=== PATIENT | female | born 1980 | race American Indian/Alaskan Native ===

== ENCOUNTER 2019-03-07 23:09 | Emergency (ER) | payer SELFPAY ==
[2019-03-07 23:55] VITALS: BMI 35.5
[2019-03-08] VITALS: BP 136/75; PULSE 105; RESP 18; TEMP 98.3; O2SAT 100
--- NOTE | 2019-03-08 00:16 | ED PDOC ---
Arrival/HPI - General Historian: Patient - History of Present Illness Narrative History of Present Illness (Text): 03/08/19 00:17 Pt is a 38 yo female with a PMH of iron deficiency anemia who presents to the ED complaining of fatigue for the past year which has worsened over the past 2 weeks. Pt states she has been urinating more than usual, feeling tired and lethargic. Pt denies weakness, visual changes, personal or family history of Diabetes. Time/Duration: > week Severity Level: 8 Activities at Onset: Rest Context: Sitting <Jatinder Mares - Last Filed: 03/08/19 01:35> <Martell Robles - Last Filed: 03/08/19 02:29> - General Chief Complaint: Flu-like Symptoms Past Medical History - Hematological/Oncological Hx Anemia: Yes - Psychiatric Hx Psychophysiologic Disorder: No Hx Substance Use: No - Anesthesia Hx Anesthesia: No Hx Anesthesia Reactions: No Hx Malignant Hyperthermia: No <Jatinder Maresron - Last Filed: 03/08/19 01:35> Family/Social History Family/Social History: No Known Family HX Smoking Status: Never Smoked Hx Alcohol Use: No Hx Substance Use: No <Jatinder Maresron - Last Filed: 03/08/19 01:35> Allergies/Home Meds <Jatinder Maresron - Last Filed: 03/08/19 01:35> <Martell Robles - Last Filed: 03/08/19 02:29> Allergies/Adverse Reactions: Allergies No Known Allergies Allergy (Verified 03/07/19 23:55) Home Medications: Home Meds Medication Instructions Recorded Confirmed No Known Home Med 03/07/19 03/07/19 Review of Systems - Review of Systems Constitutional: Fatigue Eyes: Normal ENT: Normal Respiratory: Normal Cardiovascular: Normal Gastrointestinal: Normal Genitourinary Female: Frequency, Urine Output Changes Musculoskeletal: Normal Skin: Normal Neurological: Dizziness Endocrine: Normal Hemo/Lymphatic: Normal Psychiatric: Normal <Jatinder Maresron - Last Filed: 03/08/19 01:35> Physical Exam Vital Signs Reviewed: Yes Vital Signs Temp Pulse Resp BP Pulse Ox 03/07/19 23:59 98.3 F 105 H 18 136/75 100 Temperature: Afebrile Blood Pressure: Normal Pulse: Regular Respiratory Rate: Normal Appearance: Positive for: Well-Appearing Mental Status: Positive for: Alert and Oriented X 3 - Systems Exam Head: Present: Atraumatic, Normocephalic Pupils: Present: PERRL Extroacular Muscles: Present: EOMI Conjunctiva: Present: Normal Mouth: Present: Moist Mucous Membranes Neck: Present: Normal Range of Motion Respiratory/Chest: Present: Clear to Auscultation, Good Air Exchange. No: Respiratory Distress, Accessory Muscle Use Cardiovascular: Present: Regular Rate and Rhythm, Normal S1, S2 Abdomen: Present: Tenderness, Distention. No: Normal Bowel Sounds Upper Extremity: Present: Normal Inspection Lower Extremity: Present: Normal Inspection Neurological: Present: GCS=15, CN II-XII Intact Skin: Present: Warm, Dry, Normal Color Psychiatric: Present: Alert, Oriented x 3 <Jatinder Mares - Last Filed: 03/08/19 01:35> Vital Signs Temp Pulse Resp BP Pulse Ox 03/07/19 23:59 98.3 F 105 H 18 136/75 100 <Martlel Robles - Last Filed: 03/08/19 02:29> Medical Decision Making ED Course and Treatment: 03/08/19 00:24 CBC CMP UA 03/08/19 01:29 CBC shows microcytic anemia likely leading to pt fatigue have pt continue to take her iron supplementation and follow up with her PMD as an outpt Pt seen, examined, assessment and plan discussed with Dr Margaret Mares PGY1 <Jatinder Mares - Last Filed: 03/08/19 01:35> ED Course and Treatment: Impression: Pt seen and evaluated with medical claims assistant. Aware and agree with HPI, clinical findings, plan, and management. Pt, whose past medical history includes anemia, presented for fatigue. Plan: -- Labs -- Urinalysis, urine cultures -- Reassess and disposition - Lab Interpretations Lab Results: Total Bilirubin 0.2 mg/dL (0.2-1.3) 03/08/19 00:49 AST 49 U/L (14-36) H 03/08/19 00:49 ALT 52 U/L (7-56) 03/08/19 00:49 Alkaline Phosphatase 80 U/L (38-126) 03/08/19 00:49 Total Protein 8.4 g/dL (5.8-8.3) H 03/08/19 00:49 Albumin 4.2 g/dL (3.0-4.8) 03/08/19 00:49 Globulin 4.2 gm/dL 03/08/19 00:49 Albumin/Globulin Ratio 1.0 (1.1-1.8) L 03/08/19 00:49 Urine Color Yellow (YELLOW) 03/08/19 00:49 Urine Appearance Clear (CLEAR) 03/08/19 00:49 Urine pH 6.0 (4.7-8.0) 03/08/19 00:49 Ur Specific [place] 1.020 (1.005-1.035) 03/08/19 00:49 Urine Protein Negative mg/dL (<30 mg/dL) 03/08/19 00:49 Urine Glucose (UA) Negative mg/dL (NEGATIVE) 03/08/19 00:49 Urine Ketones Trace mg/dL (NEGATIVE) H 03/08/19 00:49 Urine Blood Negative (NEGATIVE) 03/08/19 00:49 Urine Nitrate Negative (NEGATIVE) 03/08/19 00:49 Urine Bilirubin Negative (NEGATIVE) 03/08/19 00:49 Urine Urobilinogen 0.2 E.U./dL (<1 E.U./dL) 03/08/19 00:49 Ur Leukocyte Esterase Trace Adán/uL (NEGATIVE) H 03/08/19 00:49 Urine RBC 0 - 2 /hpf (0-2) 03/08/19 00:49 Urine WBC 1 - 3 /hpf (0-6) 03/08/19 00:49 Ur Epithelial Cells 1 - 3 /hpf (0-5) 03/08/19 00:49 Urine Bacteria Small /hpf (NONE) 03/08/19 00:49 <Martell Robles - Last Filed: 03/08/19 02:29> Disposition/Present on Arrival - Present on Arrival Any Indicators Present on Arrival: No History of DVT/PE: No History of Uncontrolled Diabetes: No Urinary Catheter: No History of Decub. Ulcer: No History Surgical Site Infection Following: None - Disposition Have Diagnosis and Disposition been Completed?: Yes Disposition Time: 01:35 Patient Plan: Discharge <Jatinder Mares - Last Filed: 03/08/19 01:35> <Martell Robles - Last Filed: 03/08/19 02:29> - Disposition Diagnosis: Anemia Disposition: HOME/ ROUTINE Condition: GOOD Discharge Instructions (ExitCare): Anemia Caused by [place] Referrals: Pankaj Bhat MD [Primary Care Provider] - Follow up with primary Forms: [employer] ([place])
[2019-03-08 01:03] LABS: BASO # 0.02 K/mm3 (0.0-2.0); BASO % 0.3 % (0.0-3.0); EOS # 0.1 (0.0-0.7); EOS % 1.9 % (1.5-5.0); HEMOGLOBIN 10.8 g/dL (12.0-16.0); LYMPH # 2.3 (1.2-3.4); LYMPH % 35.6 % (22.0-35.0); MEAN CORPUSCULAR HEMOGLOBIN 24.3 pg (25.0-35.0); MEAN CORPUSCULAR HGB CONC 31.6 g/dl (31.0-37.0); MEAN PLATELET VOLUME 10.5 fl (7.0-11.0); MONO # 0.4 (0.1-0.6); MONO % 5.6 % (1.0-6.0); RBC 4.44 10^6/uL (3.5-6.1); URINE BILIRUBIN NEGATIVE (NEGATIVE); URINE BLOOD NEGATIVE (NEGATIVE); URINE GLUCOSE (UA) NEGATIVE (NEGATIVE); URINE LEUKOCYTE ESTERASE TRACE Leu/uL (NEGATIVE); URINE PROTEIN NEGATIVE mg/dL (<30 mg/dL); URINE UROBILINOGEN 0.2 E.U./dL (<1 E.U./dL); WHITE BLOOD COUNT 6.4 10^3/uL (4.5-11.0)
[2019-03-08 01:04] LABS: URINE APPEARANCE CLEAR (CLEAR); URINE COLOR YELLOW (YELLOW)
[2019-03-08 01:17] LABS: URINE BACTERIA SMALL /hpf; URINE RBC 0 - 2 /hpf (0-2)
[2019-03-08 01:21] LABS: ALBUMIN 4.2 g/dL (3.0-4.8); ALT/SGPT 52 U/L (7-56); AST/SGOT 49 U/L (14-36); BLOOD UREA NITROGEN 13 mg/dL (7-21); CALCIUM 9.5 mg/dL (8.4-10.5); GFR NON-AFRICAN AMERICAN > 60
== END 2019-03-08 01:40 | disposition home or self-care (01) ==
LOC: ED 23:09 → MERGE 23:09 → ED 03-08 01:40
DX: D64.9 Anemia, unspecified (principal)